=== PATIENT | female | born 1980 | race Caucasian/White ===

== ENCOUNTER 2016-07-02 07:41 | Outpatient (CLI) | payer BC | END 2016-07-02 07:42 | disposition home or self-care (01) | DX: G35 Multiple sclerosis (principal) ==

== ENCOUNTER 2016-07-02 07:42 | Outpatient (CLI) | payer BC ==
[2016-07-02] MEDS ORDERED: GADOBUTROL 7.5 MMOL/7.5 ML VIAL IVP ONE (08:34)
== END 2016-07-02 07:43 | disposition home or self-care (01) ==
DX: G95.89 Other specified diseases of spinal cord (principal); M50.31 Other cervical disc degeneration, high cervical region; M50.221 Other cervical disc displacement at C4-C5 level; M50.322 Other cervical disc degeneration at C5-C6 level; M25.78 Osteophyte, vertebrae; M50.323 Other cervical disc degeneration at C6-C7 level
CPT/HCPCS: 70553; 72156; A9585

== ENCOUNTER 2017-05-10 11:23 | Outpatient (CLI) | payer BC ==
--- NOTE | 2017-05-10 14:12 | XRAY Report ---
FOUR VIEW RIGHT WRIST: 05/10/2017 CLINICAL INDICATION: Pain. FINDINGS: AP, lateral, oblique, scaphoid views of the right wrist demonstrate no evidence of acute fracture or dislocation. The joint spaces are preserved. No foreign body is seen in the soft tissues. IMPRESSION: NORMAL RIGHT WRIST. TD: 05/10/2017 14:11
== END 2017-05-10 11:24 | disposition home or self-care (01) ==
LOC: DI.S 11:23
PROVIDERS: ATTEND Nurse Practitioner Family
DX: M25.531 Pain in right wrist (principal)

== ENCOUNTER 2017-05-30 14:22 | Outpatient (CLI) | payer BC ==
[2017-05-30 17:21] LABS: BASOPHILS % (AUTO) 0.5 %; EOSINOPHILS % (AUTO) 0.4 %; HGB - HEMOGLOBIN 13.5 g/dL (12.0-16.0); LYMPHOCYTES # (AUTO) 0.6 10^3/uL (1.5-3.5); MEAN CORPUSCULAR HEMOGLOBIN 31.6 pg (27.0-31.0); MEAN CORPUSCULAR HGB CONC 33.9 g/dL (32.0-36.0); MEAN CORPUSCULAR VOLUME 93.1 fL (81.0-99.0); MEAN PLATELET VOLUME 8.4 fL (7.9-10.8); MONOCYTES # (AUTO) 1.1 10^3/uL (0.0-1.0); MONOCYTES % (AUTO) 20.8 %; NEUTROPHILS # (AUTO) 3.4 10^3/uL (1.5-6.6); NEUTROPHILS % (AUTO) 67.3 %; PLT - PLATELET COUNT 244 10^3/uL (130-450); RED BLOOD COUNT 4.28 10^6/uL (4.20-5.40); RED CELL DISTRIBUTION WIDTH 12.3 % (12.0-15.0); WHITE BLOOD COUNT 5.1 x10^3/uL (4.8-10.8)
== END 2017-05-30 14:23 | disposition home or self-care (01) ==
LOC: LAB.F 14:22
PROVIDERS: ATTEND Psychiatry & Neurology Neurology
DX: G35 Multiple sclerosis (principal)
CPT/HCPCS: 36415; 85025

== ENCOUNTER 2017-10-02 09:48 | Outpatient (CLI) | payer BC ==
[2017-10-03 10:14] LABS: BASOPHILS % (AUTO) 0.8 %; HGB - HEMOGLOBIN 14.4 g/dL (12.0-16.0); LYMPHOCYTES # (AUTO) 0.5 10^3/uL (1.5-3.5); LYMPHOCYTES % (AUTO) 12.9 %; MEAN CORPUSCULAR HEMOGLOBIN 32.9 pg (27.0-31.0); MEAN PLATELET VOLUME 8.9 fL (7.9-10.8); MONOCYTES # (AUTO) 0.5 10^3/uL (0.0-1.0); MONOCYTES % (AUTO) 12.2 %; NEUTROPHILS # (AUTO) 3.1 10^3/uL (1.5-6.6); NEUTROPHILS % (AUTO) 73.1 %; PLT - PLATELET COUNT 267 10^3/uL (130-450); RED BLOOD COUNT 4.38 10^6/uL (4.20-5.40); RED CELL DISTRIBUTION WIDTH 13.5 % (12.0-15.0); WHITE BLOOD COUNT 4.2 x10^3/uL (4.8-10.8)
== END 2017-10-02 09:49 | disposition home or self-care (01) ==
LOC: LAB.F 09:48
PROVIDERS: ATTEND Psychiatry & Neurology Neurology
DX: G35 Multiple sclerosis (principal); D89.9 Disorder involving the immune mechanism, unspecified
CPT/HCPCS: 36415; 85025

== ENCOUNTER 2017-11-06 10:53 | Outpatient (CLI) | payer BC ==
[2017-11-06 18:25] LABS: FOLATE 16.61 ng/mL (5.90 - >24.8)
== END 2017-11-06 10:54 | disposition home or self-care (01) ==
LOC: LAB.F 10:53
PROVIDERS: ATTEND Psychiatry & Neurology Neurology
DX: D75.89 Other specified diseases of blood and blood-forming organs (principal)
CPT/HCPCS: 36415; 82607; 82746

== ENCOUNTER 2018-06-27 14:36 | Outpatient (CLI) | payer BC ==
[2018-06-27 18:04] LABS: BASOPHILS % (AUTO) 0.7 %; EOSINOPHILS % (AUTO) 0.8 %; HGB - HEMOGLOBIN 13.3 g/dL (12.0-16.0); LYMPHOCYTES # (AUTO) 0.5 10^3/uL (1.5-3.5); LYMPHOCYTES % (AUTO) 8.9 %; MEAN CORPUSCULAR HEMOGLOBIN 32.4 pg (27.0-31.0); MEAN CORPUSCULAR HGB CONC 33.7 g/dL (32.0-36.0); MEAN CORPUSCULAR VOLUME 96.3 fL (81.0-99.0); MEAN PLATELET VOLUME 8.6 fL (7.9-10.8); MONOCYTES % (AUTO) 16.2 %; NEUTROPHILS # (AUTO) 4.6 10^3/uL (1.5-6.6); NEUTROPHILS % (AUTO) 73.4 %; PLT - PLATELET COUNT 275 10^3/uL (130-450); RED BLOOD COUNT 4.09 10^6/uL (4.20-5.40); RED CELL DISTRIBUTION WIDTH 12.6 % (12.0-15.0); WHITE BLOOD COUNT 6.2 x10^3/uL (4.8-10.8)
== END 2018-06-27 14:37 | disposition home or self-care (01) ==
LOC: LAB.F 14:36
PROVIDERS: ATTEND Psychiatry & Neurology Neurology
DX: G35 Multiple sclerosis (principal)
CPT/HCPCS: 36415; 85025

== ENCOUNTER 2018-09-20 10:14 | Outpatient (CLI) | payer BC ==
[2018-09-20 17:07] LABS: EOSINOPHILS # (AUTO) 0.2 10^3/uL (0.0-0.7); HGB - HEMOGLOBIN 11.1 g/dL (12.0-16.0); LYMPHOCYTES # (AUTO) 0.5 10^3/uL (1.5-3.5); LYMPHOCYTES % (AUTO) 13.9 %; MEAN CORPUSCULAR HEMOGLOBIN 31.9 pg (27.0-31.0); MEAN CORPUSCULAR HGB CONC 32.1 g/dL (32.0-36.0); MEAN CORPUSCULAR VOLUME 99.4 fL (81.0-99.0); MEAN PLATELET VOLUME 10.7 fL (7.9-10.8); MONOCYTES # (AUTO) 0.9 10^3/uL (0.0-1.0); MONOCYTES % (AUTO) 24.3 %; NEUTROPHILS # (AUTO) 2.1 10^3/uL (1.5-6.6); NEUTROPHILS % (AUTO) 55.5 %; PLT - PLATELET COUNT 318 10^3/uL (130-450); RED BLOOD COUNT 3.48 10^6/uL (4.20-5.40); RED CELL DISTRIBUTION WIDTH 12.8 % (12.0-15.0); WHITE BLOOD COUNT 3.8 x10^3/uL (4.8-10.8)
== END 2018-09-20 10:15 | disposition home or self-care (01) ==
LOC: LAB.S 10:14
PROVIDERS: ATTEND Psychiatry & Neurology Neurology
DX: G35 Multiple sclerosis (principal)
CPT/HCPCS: 36415; 85025

== ENCOUNTER 2018-09-29 12:00 | Outpatient (CLI) | payer BC ==
--- NOTE | 2018-09-29 16:09 | Ultrasound Report ---
Reason: MENORRHAGIA Procedure Date: 09/29/2018 Accession Number: [id number] / [id number] Procedure: US - Transvaginal CPT Code: FULL RESULT: EXAM: PELVIC ULTRASOUND EXAM DATE: 09/29/2018 12:45 PM. CLINICAL HISTORY: MENORRHAGIA. COMPARISON: PELVIC W/TRANSVAGINAL 05/09/2015 3:11 PM. TECHNIQUE: Realtime transabdominal pelvic scan performed to identify the uterus and adnexa and as an overview of other pelvic structures, followed by transvaginal scan to provide greater detail of the uterus and adnexa, with static image documentation. FINDINGS: Uterus: 8.6 x 4.6 x 5.1 cm, volume 106 cc. Normal overall size and echotexture. Masses: None. Endometrium: 2.5 mm. Normal. Cervix: Unremarkable. Right Ovary: 2.3 x 1.7 x 2.3 cm, volume 4.6 cc. Normal echotexture and blood flow. Left Ovary: 2.6 x 1.4 x 2.7 cm, volume 5.2 cc. Normal echotexture and blood flow. Free Fluid: None. Other: Portion of the right Essure device visualized. IMPRESSION: No sonographic evidence for acute pelvic process. RADIA
== END 2018-09-29 12:01 | disposition home or self-care (01) ==
LOC: DI 12:00
PROVIDERS: ATTEND Internal Medicine
DX: N92.0 Excessive and frequent menstruation with regular cycle (principal)
CPT/HCPCS: 76830

== ENCOUNTER 2018-10-30 15:46 | Outpatient (CLI) | payer BC ==
[2018-10-30] MEDS ORDERED: GADOBUTROL 10 MMOL/10 ML VIAL ONE (17:46)
[2018-10-30] MEDS ORDERED: GADOBUTROL 10 MMOL/10 ML VIAL IVP ONE (18:07)
--- NOTE | 2018-10-30 20:56 | MRI Report ---
Reason: MULTIPLE SCLEROSIS, IMMUNOSUPPRESSED STATUS Procedure Date: 10/30/2018 Accession Number: [id number] / [id number] Procedure: MRI - Brain W/WO CPT Code: FULL RESULT: EXAM: MRI BRAIN WITHOUT AND WITH CONTRAST EXAM DATE: 10/30/2018 05:49 PM. CLINICAL HISTORY: Multiple sclerosis follow-up. COMPARISON: MRI 07/02/2016. TECHNIQUE: Multiplanar, multisequence T1-weighted and fluid-sensitive MR sequences of the brain were performed. Sequences optimized for white matter evaluation. Other: None. IV Contrast: 7 mL Gadavist. FINDINGS: New 1 cm strongly enhancing rounded deep white matter lesion of the left frontal lobe. New 0.9 cm strongly enhancing rounded periventricular left parietal lobe white matter lesion. Otherwise grossly stable extensive white matter disease, in a pattern consistent with the given diagnosis of MS. Subjectively stable brain volume. No acute hemorrhage or stroke. No midline shift or hydrocephalus. No abnormal subdural fluid collection. No acute sinus or mastoid opacity. The major arterial skull base flow voids are present. No other evidence for new/acute non-white matter disease related pathology. IMPRESSION: 1. New prominent enhancing white matter lesions in the left frontal lobe and left parietal lobe consistent with lesion burden progression and activity. 2. Otherwise grossly stable findings consistent with MS. RADIA
== END 2018-10-30 15:47 | disposition home or self-care (01) ==
LOC: DI 15:46
PROVIDERS: ATTEND Psychiatry & Neurology Neurology
DX: G35 Multiple sclerosis (principal); D89.9 Disorder involving the immune mechanism, unspecified
CPT/HCPCS: 70553; A9585

== ENCOUNTER 2019-10-29 14:32 | Outpatient (CLI) | payer BC ==
[2019-10-29] MEDS ORDERED: GADOBUTROL 7.5 MMOL/7.5 ML VIAL ONE (15:19)
[2019-10-29] MEDS ORDERED: GADOBUTROL 7.5 MMOL/7.5 ML VIAL IVP ONE (15:54)
--- NOTE | 2019-11-01 14:02 | MRI Report ---
PROCEDURE: Brain W/WO INDICATIONS: MS CONTRAST: IV CONTRAST: Gadavist ml: 6 TECHNIQUE: Noncontrast axial T1 spin echo, axial T2 fast spin echo, sagittal and axial FLAIR, coronal T2 fast sp in echo, axial gradient echo, axial diffusion and ADC through the brain. After the administration of contrast, axial and coronal T1 spin echo with fat saturation through the brain. COMPARISON: Brain MRI dated 07.02.16. FINDINGS: Image quality: Excellent. CSF spaces: Basal cisterns are patent. No extra-axial fluid collections. Ventricles are normal in size and shape. Brain: No midline shift. No intracranial bleeds or masses. No abnormal intracranial enhancement. There is cerebral volume loss for age. There is a moderate degree of patchy high FLAIR signal within the periventricular, subcortical, callosal, and pericallosal white matter, as before. There has been a mild to moderate increase in the degree of white matter disease compared to the prior examination. For example, within the right mid centrum semiovale valve, there is a roughly 18 mm diameter focus o f elevated FLAIR signal, which was previously less confluent, and measured 15 mm. Within the left par ietal subcortical white matter, there is a 13 mm diameter focus of elevated FLAIR signal intensity, w hich previously measured 5 mm. The brainstem appears normal. Diffusion-weighted images demonstrate n o acute ischemic insults. No chronic ischemic insults. Normal intravascular flow voids are present. Skull and face: Calvarial marrow is normal in signal. Orbits appear normal. Sinuses: Sinuses and mastoids appear clear. IMPRESSION: 1. Increased white matter disease, consistent with multiple sclerosis. 2. No acute process. No recent infarct. Reviewed by: Loren Vazquez MD on 11/01/2019 2:00 PM PDT Approved by: Loren Vazquez MD on 11/01/2019 2:00 PM PDT Station ID: [id number]
== END 2019-10-29 14:33 | disposition home or self-care (01) ==
LOC: DI 14:32
PROVIDERS: ATTEND Psychiatry & Neurology Neurology
DX: G35 Multiple sclerosis (principal)
CPT/HCPCS: 70553

== ENCOUNTER 2019-11-07 14:28 | Outpatient (CLI) | payer BC ==
[2019-11-07 20:24] LABS: BASOPHILS % (AUTO) 0.7 %; EOSINOPHILS % (AUTO) 0.9 %; HGB - HEMOGLOBIN 13.6 g/dL (12.0-16.0); LYMPHOCYTES # (AUTO) 0.6 10^3/uL (1.5-3.5); LYMPHOCYTES % (AUTO) 13.8 %; MEAN CORPUSCULAR HEMOGLOBIN 33.6 pg (27.0-31.0); MEAN CORPUSCULAR HGB CONC 33.8 g/dL (32.0-36.0); MEAN CORPUSCULAR VOLUME 99.3 fL (81.0-99.0); MEAN PLATELET VOLUME 10.7 fL (7.9-10.8); MONOCYTES # (AUTO) 1.1 10^3/uL (0.0-1.0); MONOCYTES % (AUTO) 22.9 %; NEUTROPHILS # (AUTO) 2.8 10^3/uL (1.5-6.6); NEUTROPHILS % (AUTO) 61.3 %; PLT - PLATELET COUNT 231 10^3/uL (130-450); RED BLOOD COUNT 4.05 10^6/uL (4.20-5.40); RED CELL DISTRIBUTION WIDTH 12.3 % (12.0-15.0); WHITE BLOOD COUNT 4.6 x10^3/uL (4.8-10.8)
== END 2019-11-07 14:29 | disposition home or self-care (01) ==
LOC: LAB.S 14:28
PROVIDERS: ATTEND Psychiatry & Neurology Neurology
DX: G35 Multiple sclerosis (principal)
CPT/HCPCS: 36415; 85025

== ENCOUNTER 2020-09-15 08:36 | Outpatient (CLI) | payer BC ==
[2020-09-15 17:14] LABS: BASOPHILS % (AUTO) 0.6 %; EOSINOPHILS % (AUTO) 0.8 %; HGB - HEMOGLOBIN 14.2 g/dL (12.0-16.0); LYMPHOCYTES # (AUTO) 0.9 10^3/uL (1.5-3.5); LYMPHOCYTES % (AUTO) 19.5 %; MEAN CORPUSCULAR HEMOGLOBIN 32.7 pg (27.0-31.0); MEAN CORPUSCULAR VOLUME 99.1 fL (81.0-99.0); MEAN PLATELET VOLUME 10.5 fL (7.9-10.8); MONOCYTES % (AUTO) 20.9 %; NEUTROPHILS # (AUTO) 2.7 10^3/uL (1.5-6.6); NEUTROPHILS % (AUTO) 57.8 %; PLT - PLATELET COUNT 318 10^3/uL (130-450); RED BLOOD COUNT 4.34 10^6/uL (4.20-5.40); RED CELL DISTRIBUTION WIDTH 12.3 % (12.0-15.0); WHITE BLOOD COUNT 4.7 x10^3/uL (4.8-10.8)
== END 2020-09-15 08:37 | disposition home or self-care (01) ==
LOC: LAB.S 08:36
PROVIDERS: ATTEND Psychiatry & Neurology Neurology
DX: G35 Multiple sclerosis (principal)
CPT/HCPCS: 36415; 85025

== ENCOUNTER 2020-10-20 09:57 | Outpatient (CLI) | payer BC ==
--- NOTE | 2020-10-21 14:40 | Mammography Report ---
BILATERAL DIGITAL SCREENING MAMMOGRAM 3D/2D WITH EXAGGERATED CC: 10/20/2020 CLINICAL: Baseline exam. No prior exams were available for comparison. The tissue of both breasts is heterogeneously dense. T his may lower the sensitivity of mammography. No significant masses, calcifications, or other findings are seen in either breast. IMPRESSION: NEGATIVE There is no mammographic evidence of malignancy. A 1 year screening mammogram is recommended. This exam was interpreted at Station ID: [id number]. NOTE: For mammograms, a report in lay terms will be sent to the patient. Approximately 15% of breast malignancies will not be visualized mammographically. In the management of a palpable breast mass, a negative mammogram must not discourage biopsy of a clinically suspicious lesion. Electronically Signed By: Shaq Crowe M.D. [facility] [place]:10/20/2020 11:32:39 ACR BI-RADS Category 1: Negative 3341F PARENCHYMAL PATTERN: (D) - The breast(s) demonstrate(s) heterogeneously dense fibroglandular josr stweart. BI-RADS CATEGORY: (1) - 1 RECOMMENDATION: (ANNUAL) - Recommend routine annual screening mammography. [id number] 1 year screening LATERALITY: (B)
== END 2020-10-20 09:58 | disposition home or self-care (01) ==
LOC: DI.S 09:57
DX: Z12.31 Encounter for screening mammogram for malignant neoplasm of breast (principal)

== ENCOUNTER 2020-10-22 14:58 | Outpatient (CLI) | payer BC ==
[2020-10-22 20:05] LABS: BASOPHILS % (AUTO) 0.4 %; EOSINOPHILS % (AUTO) 0.4 %; HCT - HEMATOCRIT 40.6 % (37.0-47.0); HGB - HEMOGLOBIN 13.3 g/dL (12.0-16.0); LYMPHOCYTES # (AUTO) 0.8 10^3/uL (1.5-3.5); LYMPHOCYTES % (AUTO) 13.5 %; MEAN CORPUSCULAR HEMOGLOBIN 32.3 pg (27.0-31.0); MEAN CORPUSCULAR HGB CONC 32.8 g/dL (32.0-36.0); MEAN CORPUSCULAR VOLUME 98.5 fL (81.0-99.0); MEAN PLATELET VOLUME 10.4 fL (7.9-10.8); MONOCYTES # (AUTO) 0.9 10^3/uL (0.0-1.0); MONOCYTES % (AUTO) 15.7 %; NEUTROPHILS # (AUTO) 3.9 10^3/uL (1.5-6.6); NEUTROPHILS % (AUTO) 69.6 %; PLT - PLATELET COUNT 252 10^3/uL (130-450); RED BLOOD COUNT 4.12 10^6/uL (4.20-5.40); RED CELL DISTRIBUTION WIDTH 12.1 % (12.0-15.0); WHITE BLOOD COUNT 5.6 x10^3/uL (4.8-10.8)
[2020-10-22 20:06] LABS: BILIRUBIN,URINE NEGATIVE (NEGATIVE); GLUCOSE, URINE (UA) NEGATIVE (NEGATIVE); KETONES,URINE (UA) 15 mg/dL (NEGATIVE); LEUKOCYTE ESTERASE, URINE NEGATIVE (NEGATIVE); NITRITE,URINE NEGATIVE (NEGATIVE); OCCULT BLOOD,URINE TRACE-INTA (NEGATIVE); PROTEIN,URINE NEGATIVE (NEGATIVE); UROBILINOGEN,URINE 0.2 (NORMAL) E.U./dL (NORMAL)
[2020-10-22 20:10] LABS: CLARITY,URINE CLEAR (CLEAR)
[2020-10-22 20:14] LABS: ALBUMIN 4.4 g/dL (3.2-5.5); ALBUMIN/GLOBULIN RATIO 1.5 (1.0-2.2); BILIRUBIN,TOTAL 1.1 mg/dL (0.2-1.0); CALCIUM 9.5 mg/dL (8.5-10.3); CREATININE 0.7 mg/dL (0.4-1.0); POTASSIUM 3.7 mmol/L (3.5-5.0); TOTAL PROTEIN 7.3 g/dL (6.7-8.2)
== END 2020-10-22 14:59 | disposition home or self-care (01) ==
LOC: LAB.S 14:58
PROVIDERS: ATTEND Psychiatry & Neurology Neurology
DX: G35 Multiple sclerosis (principal)
CPT/HCPCS: 36415; 80053; 81001; 81003; 85025

== ENCOUNTER 2020-10-26 08:41 | Outpatient (CLI) | payer BC ==
[2020-10-26 09:11] LABS: CREATININE 0.8 mg/dL (0.4-1.0)
[2020-10-26] MEDS ORDERED: GADOBUTROL 10 MMOL/10 ML VIAL ONE (09:28)
--- NOTE | 2020-10-26 12:58 | MRI Report ---
PROCEDURE: Brain W/WO INDICATIONS: MULTIPLE SCLEROSIS CONTRAST: IV CONTRAST: Gadavist ml: 6 TECHNIQUE: Noncontrast axial T1 spin echo, axial T2 fast spin echo, sagittal and axial FLAIR, coronal T2 fast sp in echo, axial gradient echo, axial diffusion and ADC through the brain. After the administration of contrast, axial and coronal T1 spin echo with fat saturation through the brain. COMPARISON: 10/29/2019 FINDINGS: Cerebrum, Cerebellum and Brainstem: Multifocal subcortical and deep white matter hyperintensities are again noted, some of which are oblong and oriented perpendicular to the ventricular surface. There i s involvement of the callosal septal interface, and generalized volume loss associated with thinning of the corpus callosum. There is more confluent signal noted in the left calderon radiata and centrum s emiovale which now measures 2.2 cm overall, previously 1.0 cm. Several lesions show decreased T1 sign al, but no lesions enhance, and there is no involvement of the brainstem or cerebellum. The diffusion sequence is normal without evidence of acute infarct, although T2 shine through artifa ct is noted in the left centrum semiovale. No intracranial hemorrhage, mass lesion or midline shift. Basal Cisterns and foramen magnum contain appropriate anatomy and vascular flow voids. No evidence of dural or leptomeningeal thickening. Ventricles: Appropriate in size and position. No hydrocephalus. Skull Base: The bony sella, pituitary gland and infundibulum are unremarkable. Clivus and craniover tebral relationships are appropriate. Visualized portions of the seventh and eighth cranial nerve co mplexes and internal auditory canals are within normal limits. Scalp and Calvarium: The scalp is unremarkable. Underlying calvarium has an appropriate marrow signa l. Paranasal Sinuses: Visualized sinuses are clear. Mastoids: Unremarkable as visualized. No mastoid effusion present. Orbits: The orbits, globes, optic nerves and ocular muscles are unremarkable. IMPRESSION: 1. Progressive multiple sclerosis. There is increase in size and number of white matter plaques, part icularly in the left calderon radiata white matter. No evidence of active demyelination. Reviewed by: Papito Pearson MD on 10/26/2020 11:57 AM ANNETTE Approved by: Papito Pearson MD on 10/26/2020 11:57 AM AKNIDIA Station ID: [id number]
[2020-10-26] MEDS ORDERED: GADOBUTROL 10 MMOL/10 ML VIAL IVP ONE (16:48)
== END 2020-10-26 08:42 | disposition home or self-care (01) ==
LOC: DI 08:41
PROVIDERS: ATTEND Psychiatry & Neurology Neurology
DX: G35 Multiple sclerosis (principal)
CPT/HCPCS: 36415; 70553; 82565; A9585

== ENCOUNTER 2020-11-06 10:11 | Outpatient (CLI) | payer BC | END 2020-11-06 10:12 | disposition home or self-care (01) | LOC: LAB.S 10:11 | PROVIDERS: ATTEND Psychiatry & Neurology Neurology | DX: G35 Multiple sclerosis (principal); R90.89 Other abnormal findings on diagnostic imaging of central nervous system; G93.9 Disorder of brain, unspecified; R20.0 Anesthesia of skin; R29.898 Other symptoms and signs involving the musculoskeletal system; R47.1 Dysarthria and anarthria; R29.810 Facial weakness | CPT/HCPCS: 81599; 86711 ==

== ENCOUNTER 2020-12-02 10:13 | Outpatient (CLI) | payer BC ==
[2020-12-02] MEDS ORDERED: GADOBUTROL 7.5 MMOL/7.5 ML VIAL ONE (10:24)
[2020-12-02] MEDS ORDERED: GADOBUTROL 7.5 MMOL/7.5 ML VIAL IVP ONE (15:23)
--- NOTE | 2020-12-02 19:49 | MRI Report ---
PROCEDURE: Cervical Spine W/WO INDICATIONS: RIGHT ARM NUMBNESS, RIGHT LEG WEAKNESS, MS CONTRAST: IV CONTRAST: Gadavist ml: 6.5 TECHNIQUE: Noncontrast sagittal T1 spin echo and T2 fast spin echo, sagittal STIR, sagittal PD fast spin echo, f oraminal oblique sagittal T2 fast spin echo, axial gradient echo or T2 fast spin echo through the cer vical spine. After the administration of contrast, sagittal and axial T1 spin echo with fat saturati on through the cervical spine. COMPARISON: Report of a prior exam dated 07/02/2016. Images not available. FINDINGS: Image quality: Excellent. Alignment and curvature: There is normal bony alignment. Marrow: Marrow demonstrates normal overall signal. Spinal cord: Within the spinal cord, there is a hyperintensity the level of the C2 odontoid measuring 6 mm, the second hyperintensity is ill-defined the level of the C2 body measuring 5.5 cm, similar to the prior report. No T1 hypointensity or volume loss present. No enhancement throughout the exam. Paraspinous soft tissues: No paravertebral masses or suspicious enhancement. C2-C3: Normal in appearance. C3-C4: Normal in appearance. C4-C5: Normal in appearance. C5-C6: There is a broad-based posterior disc bulge with superimposed small paracentral left disc pro trusion measures 2 to 3 mm. Mild disc height is maintained however. Mild central without foraminal st enosis present. C6-C7: Normal in appearance. C7-T1: Normal in appearance. IMPRESSION: 1. Stable moderate plaque noted at the medulla as well as the upper cord at the C2 level without patricia ge from the prior exam. No new or enhancing lesions. No volume loss. 2. Mild degenerative disease at C5-6 results in mild central stenosis Reviewed by: Papito Pearson MD on 12/02/2020 6:47 PM AKDT Approved by: Papito Pearson MD on 12/02/2020 6:47 PM AKDT Station ID: [id number]
== END 2020-12-02 10:14 | disposition home or self-care (01) ==
LOC: DI 10:13
PROVIDERS: ATTEND Psychiatry & Neurology Neurology
DX: M50.222 Other cervical disc displacement at C5-C6 level (principal); M47.812 Spondylosis without myelopathy or radiculopathy, cervical region
CPT/HCPCS: 72156; A9585

== ENCOUNTER 2021-10-13 09:50 | Outpatient (CLI) | payer BC ==
--- NOTE | 2021-10-14 08:32 | Mammography Report ---
BILATERAL DIGITAL SCREENING MAMMOGRAM 3D/2D WITH EXAGGERATED CC: 10/13/2021 CLINICAL: Routine screening. Comparison is made to exam dated: 10/20/2020 mammogram - [facility]. The tissue of both breasts is heterogeneously dense. This may lower the sensitivity of mammography. No significant masses, calcifications, or other findings are seen in either breast. There has been no significant interval change. IMPRESSION: NEGATIVE There is no mammographic evidence of malignancy. A 1 year screening mammogram is recommended. Based on the Tyrer Cuzick model (a risk assessment model) the patients lifetime risk is 10.7% and he r 10 year risk is 1.6%. According to the ACR, ACS, and NCCN guidelines, an annual breast MRI exam niya ng with mammogram is recommended if the patients lifetime risk is 20% or greater. This exam was interpreted at Station ID: [id number]. NOTE: For mammograms, a report in lay terms will be sent to the patient. Approximately 15% of breast malignancies will not be visualized mammographically. In the management of a palpable breast mass, a negative mammogram must not discourage biopsy of a clinically suspicious lesion. Electronically Signed By: Teja Razo M.D. aty/jodirad:10/13/2021 17:15:58 ACR BI-RADS Category 1: Negative 3341F PARENCHYMAL PATTERN: (D) - The breast(s) demonstrate(s) heterogeneously dense fibroglandular josr stewart. BI-RADS CATEGORY: (1) - 1 RECOMMENDATION: (ANNUAL) - Recommend routine annual screening mammography. [id number] 1 year screening LATERALITY: (B)
== END 2021-10-13 09:51 | disposition home or self-care (01) ==
LOC: DI.S 09:50
DX: Z12.31 Encounter for screening mammogram for malignant neoplasm of breast (principal)

== ENCOUNTER 2022-10-11 10:42 | Outpatient (CLI) | payer BC ==
--- NOTE | 2022-10-12 12:07 | Mammography Report ---
BILATERAL DIGITAL SCREENING MAMMOGRAM 3D/2D WITH EXAGGERATED CC: 10/11/2022 CLINICAL: Routine screening. Comparison is made to exams dated: 10/13/2021 mammogram and 10/20/2020 mammogram - [facility]. Both breasts are heterogeneously dense, which may obscure small masses (category c / 51-75% glandular tissue). No significant masses, calcifications, or other findings are seen in either breast. There has been no significant interval change. IMPRESSION: NEGATIVE There is no mammographic evidence of malignancy. A 1 year screening mammogram is recommended. Based on the Tyrer Cuzick model (a risk assessment model) the patients lifetime risk is 10.7% and he r 10 year risk is 1.7%. According to the ACR, ACS, and NCCN guidelines, an annual breast MRI exam niya ng with mammogram is recommended if the patients lifetime risk is 20% or greater. This exam was interpreted at Station ID: [id number]. NOTE: For mammograms, a report in lay terms will be sent to the patient. Approximately 15% of breast malignancies will not be visualized mammographically. In the management of a palpable breast mass, a negative mammogram must not discourage biopsy of a clinically suspicious lesion. Electronically Signed By: Km laguna/deangelo:10/11/2022 14:00:40 letter sent: No_Letter ACR BI-RADS Category 1: Negative 3341F PARENCHYMAL PATTERN: (D) - The breast(s) demonstrate(s) heterogeneously dense fibroglandular josr stewart. BI-RADS CATEGORY: (1) - 1 Mammogram [id number] 1 year screening LATERALITY: (B)
== END 2022-10-11 10:43 | disposition home or self-care (01) ==
LOC: DI.S 10:42
DX: Z12.31 Encounter for screening mammogram for malignant neoplasm of breast (principal)

== ENCOUNTER 2022-10-27 09:19 | Outpatient (CLI) | payer BC ==
--- NOTE | 2022-10-27 18:06 | MRI Report ---
PROCEDURE: MRI brain without contrast INDICATIONS: Multiple sclerosis TECHNIQUE: Noncontrast axial T1 spin echo, axial T2 fast spin echo, sagittal and axial FLAIR, calderon l T2 fast spin echo, axial gradient echo, axial diffusion and ADC through the brain. After the admin istration of contrast, axial and coronal T1 spin echo with fat saturation through the brain. COMPARISON: 10/26/2020 FINDINGS: Cerebrum, Cerebellum and Brainstem: Multifocal and confluent subcortical and deep white matter hyperi ntensities are again noted, some of which are oblong and oriented perpendicular to the ventricular sandoval rface. There is involvement of the callosal septal interface, and there is generalized volume loss as sociated with thinning of the corpus callosum. There is relative sparing of the brainstem and cerebel lum. Lesions are stable from prior exam. No new lesions. The diffusion sequence is normal without evidence of acute infarct. No Intracranial hemorrhage, mass lesion or midline shift. Basal Cisterns and foramen magnum contain appropriate anatomy and vascular flow voids. No evidence of dural or leptomeningeal thickening. Ventricles: Appropriate in size and position. No hydrocephalus. Skull Base: The bony sella, pituitary gland and infundibulum are unremarkable. Clivus and craniover tebral relationships are appropriate. Visualized portions of the seventh and eighth cranial nerve co mplexes and internal auditory canals are within normal limits. Scalp and Calvarium: The scalp is unremarkable. Underlying calvarium has an appropriate marrow signa l. Paranasal Sinuses: Visualized sinuses are clear. Mastoids: Unremarkable as visualized. No mastoid effusion present. Orbits: The orbits, globes, optic nerves and ocular muscles are unremarkable. IMPRESSION: 1. Stable multiple sclerosis. No new lesions. Reviewed by: Papito Pearson MD on 10/27/2022 5:04 PM ANNETTE Approved by: Papito Pearson MD on 10/27/2022 5:04 PM AKDT Station ID: [id number]
== END 2022-10-27 09:20 | disposition home or self-care (01) ==
LOC: DI 09:19
PROVIDERS: ATTEND Psychiatry & Neurology Neurology
DX: G35 Multiple sclerosis (principal)

== ENCOUNTER 2023-10-24 13:43 | Outpatient (CLI) | payer BC ==
--- NOTE | 2023-10-26 08:01 | Mammography Report ---
BILATERAL DIGITAL SCREENING MAMMOGRAM 3D/2D: 10/24/2023 CLINICAL: Routine screening. Comparison is made to exams dated: 10/11/2022 mammogram, 10/13/2021 mammogram, and 10/20/2020 mammogram - [facility]. Both breasts are heterogeneously dense, which may obscure small masses (category c / 51-75% glandular tissue). No significant masses, calcifications, or other findings are seen in either breast. There has been no significant interval change. IMPRESSION: NEGATIVE There is no mammographic evidence of malignancy. A 1 year screening mammogram is recommended. Based on the Tyrer Cuzick model (a risk assessment model) the patient's lifetime risk is 10.6% and he r 10 year risk is 1.8%. According to the ACR, ACS, and NCCN guidelines, an annual breast MRI exam niya ng with mammogram is recommended if the patient's lifetime risk is 20% or greater. This exam was interpreted at Station ID: [id number]. NOTE: For mammograms, a report in lay terms will be sent to the patient. Approximately 15% of breast malignancies will not be visualized mammographically. In the management of a palpable breast mass, a negative mammogram must not discourage biopsy of a clinically suspicious lesion. Electronically Signed By: Ambar Herrera M.D., Ph.D. /deangelo:10/25/2023 13:20:03 letter sent: No_Letter ACR BI-RADS Category 1: Negative 3341F PARENCHYMAL PATTERN: (D) - The breast(s) demonstrate(s) heterogeneously dense fibroglandular josr stewart. BI-RADS CATEGORY: (1) - 1 RECOMMENDATION: (ANNUAL) - Recommend routine annual screening mammography. [id number] 1 year screening LATERALITY: (B)
== END 2023-10-24 13:44 | disposition home or self-care (01) ==
LOC: DI.S 13:43
DX: Z12.31 Encounter for screening mammogram for malignant neoplasm of breast (principal); R92.333 Mammographic heterogeneous density, bilateral breasts